=== PATIENT | male | born 1985 | race Caucasian/White ===

== ENCOUNTER 2017-03-11 22:11 | Emergency (ER) | payer BC ==
[~2017-03-11] VITALS: Ht 180.3 cm; Wt 100.7 kg
[2017-03-11 22:14] VITALS: TEMP 36.9; Ht 180.3 cm; Wt 100.7 kg
[2017-03-11] MEDS ORDERED: ASPI325T39 PO (22:50)
[2017-03-11] MEDS ORDERED: AMPH20TA2 PO (22:50)
[2017-03-11 22:53] VITALS: O2SAT 99
--- NOTE | 2017-03-11 23:03 | EMERGENCY ROOM VISIT NOTE ---
History Report prepared by Felicia: Holley Tom Under the Supervision of: Yesica BorgesO. First contact with patient: 22:53 Chief Complaint: CHEST PAIN Stated Complaint: PAIN AND PRESSUE IN L SIDE OF CHEST RADIATING TO L History of Present Illness The patient is a 31 year old male who presents to the Emergency Room with complaints of waxing and waning right-sided chest pain beginning at 1900 tonight. The patient states that his pain also radiates down his left arm. He reports that standing up and leaning over exacerbates his pain. The patient denies shortness of breath, nausea, vomiting, fevers, chills, and back pain. The patient also denies recent changes in his bowels and urine. He also reports feeling dizzy and off-balance. No recent illness including cough or cold symptoms. He states that he felt confused for several minutes earlier. The patient states that he is physically active, especially at work, and that he lifted heavy equipment at work. He reports taking 3 aspirin for his pain today, and that it relieved his pain intensity slightly. He denies a family history of heart problems. The patient states that he spent about [address] over the weekend, but not all on one trip. States had one prior history of chest pain but was not this severe. Source of History: patient Onset: 1900 tonight Position: chest (right) Timing: waxes/wanes Modifying Factors (Worsening): other (standing and leaning over) Associated Symptoms: + weakness (dizziness, confusion), No fevers, No chills , No SOB, No nausea, No vomiting, No back pain Review of Systems See HPI for pertinent positives & negatives. A total of 10 systems reviewed and were otherwise negative. Past Medical & Surgical Medical Problems: (1) Bronchitis (2) Hypertension (3) Kidney stones Family History Diabetes mellitus FHx: cancer Social History Smoking Status: Never Smoker Marital Status: Housing Status: lives with significant other Current/Historical Medications Scheduled Aspirin (Aspirin Ec), 650 MG PO TODAY Scheduled PRN Amphetamine-Dextroamphetamine 20MG (Adderall 20MG), 10 MG PO DAILY PRN for Physical Exam Vital Signs Date Time Temp Pulse Resp B/P (MAP) Pulse Ox O2 Delivery O2 Flow Rate FiO2 03/12/17 00:28 62 20 132/71 97 03/11/17 23:59 63 22 125/75 98 Room Air 03/11/17 22:58 64 03/11/17 22:53 99 Room Air 03/11/17 22:50 99 Room Air 03/11/17 22:14 36.9 72 20 147/90 100 Room Air Physical Exam GENERAL: alert, well appearing, well nourished, no distress, non-toxic EYE EXAM: normal conjunctiva, PERRL and EOM's grossly intact OROPHARYNX: no exudate, no erythema, lips, buccal mucosa, and tongue normal and mucous membranes are moist NECK: supple, no nuchal rigidity, no adenopathy, non-tender LUNGS: Clear to auscultation. Normal chest wall mechanics HEART: no murmurs, S1 normal and S2 normal ABDOMEN: abdomen soft, non-tender, normo-active bowel sounds, no masses, no rebound or guarding. BACK: Back is symmetrical on inspection and there is no deformity, no midline tenderness, no CVA tenderness. SKIN: no rashes and no bruising UPPER EXTREMITIES: upper extremities are grossly normal. LOWER EXTREMITIES: No pitting edema. NEURO EXAM: Normal sensorium, cranial nerves II-XII grossly intact, normal speech, no gross weakness of arms, no gross weakness of legs. No drift. Finger to nose intact. Gross sensation intact. Medical Decision & Procedures ER Provider Diagnostic Interpretation: Chest X-Ray 1 view: No cardiomegaly, no effusion, no focal infiltrate, no widening mediastinum, no pulmonary edema, and no pneumothorax. Laboratory Results 03/11/17 23:15 Red Blood Count 4.65, Mean Corpuscular Volume 85.4, Mean Corpuscular Hemoglobin 29.7, Mean Corpuscular Hemoglobin Concent 34.8, Mean Platelet Volume 10.6, Neutrophils (%) (Auto) 51.2, Lymphocytes (%) (Auto) 36.6, Monocytes (%) (Auto) 9.1, Eosinophils (%) (Auto) 2.5, Basophils (%) (Auto) 0.3, Neutrophils # (Auto) 5.86, Lymphocytes # (Auto) 4.20, Monocytes # (Auto) 1.04, Eosinophils # (Auto) 0.29, Basophils # (Auto) 0.04 03/11/17 23:15 Test 03/11/17 23:15 White Blood Count 11.46 K/uL (4.8-10.8) Red Blood Count 4.65 M/uL (4.7-6.1) Hemoglobin 13.8 g/dL (14.0-18.0) Hematocrit 39.7 % (42-52) Mean Corpuscular Volume 85.4 fL (80-100) Mean Corpuscular Hemoglobin 29.7 pg (25-34) Mean Corpuscular Hemoglobin Concent 34.8 g/dl (32-36) Platelet Count 201 K/uL (130-400) Mean Platelet Volume 10.6 fL (7.4-10.4) Neutrophils (%) (Auto) 51.2 % Lymphocytes (%) (Auto) 36.6 % Monocytes (%) (Auto) 9.1 % Eosinophils (%) (Auto) 2.5 % Basophils (%) (Auto) 0.3 % Neutrophils # (Auto) 5.86 K/uL (1.4-6.5) Lymphocytes # (Auto) 4.20 K/uL (1.2-3.4) Monocytes # (Auto) 1.04 K/uL (0.11-0.59) Eosinophils # (Auto) 0.29 K/uL (0-0.5) Basophils # (Auto) 0.04 K/uL (0-0.2) RDW Standard Deviation 39.7 fL (36.4-46.3) RDW Coefficient of Variation 12.8 % (11.5-14.5) Immature Granulocyte % (Auto) 0.3 % Immature Granulocyte # (Auto) 0.03 K/uL (0.00-0.02) Anion Gap 8.0 mmol/L (3-11) Est Creatinine Clear Calc Drug Dose 158.7 ml/min Estimated GFR () 137.8 Estimated GFR (Non- 118.9 BUN/Creatinine Ratio 25.7 (10-20) Calcium Level 8.7 mg/dl (8.5-10.1) Total Bilirubin 0.5 mg/dl (0.2-1) Aspartate Amino Transf (AST/SGOT) 18 U/L (15-37) Alanine Aminotransferase (ALT/SGPT) 40 U/L (12-78) Alkaline Phosphatase 78 U/L (45-117) Troponin I < 0.015 ng/ml (0-0.045) Total Protein 7.7 gm/dl (6.4-8.2) Albumin 4.0 gm/dl (3.4-5.0) Globulin 3.7 gm/dl (2.5-4.0) Albumin/Globulin Ratio 1.1 (0.9-2) Laboratory results per my review. Medications Administered Medications (Trade) Dose Ordered Sig/Neeta Route Start Time Stop Time Status Last Admin Dose Admin Ketorolac Tromethamine (Toradol Inj) 30 mg NOW STAT IV 03/11/17 23:07 03/11/17 23:08 DC 03/11/17 23:23 30 MG ECG Indication: abdominal pain Rate (beats per minute): 66 Rhythm: normal sinus Findings: no acute ischemic change, no ectopy, other (normal intervals, normal axis ) ED Course 2254: The patient was evaluated in room B6. A complete history and physical exam was performed. 2306: Ordered Toradol Inj 30 mg IV. 0010: I updated that patient on his results. 0015: Upon reevaluation, the patient is feeling better. I discussed the findings and the treatment plan with the patient. He verbalizes agreement and understanding. He was discharged home. Medical Decision Differential diagnosis: Etiologies such as cardiac ischemia, aortic dissection, pulmonary embolism, pneumonia, pneumothorax, musculoskeletal, infections, pericarditis, myocarditis , esophageal rupture, gastrointestinal, as well as others were entertained. HEART score 0 low risk well and r/o with PERC Discussed with patient possible differential diagnosis here. Vital signs stable , labs and imaging reassuring. Doubt ACS, dissection, doubt tamponade, UE DVT, brachial plexus injury, pericarditis/myocarditis, PE, no evidence of effusion or infiltrate on chest x-ray. Patient resting comfortably, felt minimal improvement with Toradol. Patient offered additional medications and he declined. Discussed with patient follow-up with family doctor, possible need for cardiology evaluation if symptoms recur. He verbalized understanding of all this was agreeable with plan. She well-appearing at time of discharge, tolerating by mouth, and ambulated with a steady gait. Medication Reconcilliation Current Medication List: was personally reviewed by me Blood Pressure Screening Patient's blood pressure: Elevated blood pressure Blood pressure disposition: Elevated BP felt to be situational Impression Primary Impression: Chest pain Scribe Attestation The scribe's documentation has been prepared under my direction and personally reviewed by me in its entirety. I confirm that the note above accurately reflects all work, treatment, procedures, and medical decision making performed by me. Departure Information Dispostion Home / Self-Care Referrals No Doctor, Assigned (PCP) Forms HOME CARE DOCUMENTATION FORM, IMPORTANT VISIT INFORMATION Patient Instructions My [facility] Additional Instructions Please follow up with your family doctor. Please continue to monitor for any new or changing symptoms. If you have any recurrent or worsening chest pain, develop trouble breathing, dizziness, vomiting, fevers, or you've any other new concerns, please return the emergency room. Problem Qualifiers Primary Impression: Chest pain Chest pain type: unspecified Qualified Codes: R07.9 - Chest pain, unspecified
[2017-03-11] MEDS ORDERED: KETOROLAC TROMETHAMINE 30 MG/ML VIAL IV STA (23:07)
[2017-03-11 23:36] LABS: BASO % 0.3 %; BASO ABS # 0.04 K/uL (0-0.2); COMPLETE YES; EOS % 2.5 %; HEMATOCRIT 39.7 % (42-52); IG% 0.3 %; LYMPH % 36.6 %; MEAN CELL VOLUME 85.4 fL (80-100); MEAN CORPUSCULAR HEMOGLOBIN 29.7 pg (25-34); MEAN CORPUSCULAR HGB CONC 34.8 g/dl (32-36); MEAN PLATELET VOLUME 10.6 fL (7.4-10.4); MONO % 9.1 %; NEUT % 51.2 %; PLATELET COUNT 201 K/uL (130-400); RED BLOOD COUNT 4.65 M/uL (4.7-6.1); WHITE BLOOD COUNT 11.46 K/uL (4.8-10.8)
[2017-03-11 23:56] LABS: ALT/SGPT 40 U/L (12-78); AST/SGOT 18 U/L (15-37); BLOOD UREA NITROGEN 21 mg/dl (7-18); BUN/CREATININE RATIO 25.7 (10-20); CALCIUM 8.7 mg/dl (8.5-10.1); CARBON DIOXIDE 24 mmol/L (21-32); CHLORIDE 107 mmol/L (98-107); CREATININE 0.83 mg/dl (0.60-1.40); GLUCOSE 93 mg/dl (70-99); POTASSIUM 3.7 mmol/L (3.5-5.1); SODIUM 139 mmol/L (136-145)
[2017-03-12] LABS: ALB/GLOB RATIO 1.1 (0.9-2); ALKALINE PHOSPHATASE 78 U/L (45-117)
[2017-03-12 00:28] VITALS: BP 132/71; PULSE 62; O2SAT 97
--- NOTE | 2017-03-12 07:14 | DIAGNOSTIC IMAGING REPORT ---
SINGLE VIEW CHEST CLINICAL HISTORY: Atypical chest pain. FINDINGS: 2 AP, portable, upright chest radiographs are correlated with abdominal CT dated 04/17/2016. The examination is degraded by portable technique and patient rotation. The cardiomediastinal silhouette is unremarkable. The lungs and pleural spaces are clear. No pneumothorax is seen. The bony thorax is grossly intact. IMPRESSION: No active disease in the chest. Electronically signed by: Aydin Wills M.D. 03/12/2017 7:13 AM Dictated Date/Time: 03/12/2017 7:12 AM
== END 2017-03-12 00:29 | disposition home or self-care (01) ==
LOC: C.EDB 22:12
DX: R07.9 Chest pain, unspecified (principal); I10 Essential (primary) hypertension; Z87.440 Personal history of urinary (tract) infections; Z79.82 Long term (current) use of aspirin; Z83.3 Family history of diabetes mellitus; Z80.9 Family history of malignant neoplasm, unspecified

== ENCOUNTER → 2017-12-31 | Outpatient (CLI) | payer BC ==
[~2017-12-31] MED LIST: AMPH20TA2 PO; ASPI325T39 PO
--- NOTE | 2018-01-01 14:17 | DIAGNOSTIC IMAGING REPORT ---
LUMBAR SPINE 2 OR 3 VIEWS CLINICAL HISTORY: Bilateral hip and low back pain COMPARISON STUDY: No previous studies for comparison. FINDINGS: There are 5 lumbar type vertebral bodies present. No fractures or subluxations are visualized. There are no erosive or destructive changes. There are minor degenerative changes the T12-L1 level. Visualized portions of the hips appear unremarkable. There is mild prominence of the splenic shadow. IMPRESSION: 1. No fractures subluxations or destructive lesions are visualized. Electronically signed by: Justus Hernandez M.D. 01/01/2018 2:16 PM Dictated Date/Time: 01/01/2018 2:14 PM
== END | disposition home or self-care (01) ==
LOC: C.RDSM 16:20
PROVIDERS: ATTEND Orthopaedic Surgery Sports Medicine
DX: M53.3 Sacrococcygeal disorders, not elsewhere classified (principal)